=== PATIENT | male | born 1980 | race Caucasian/White ===

== ENCOUNTER 2020-02-23 20:12 | Inpatient (IN) | payer OTHER ==
[2020-02-23 20:50] VITALS: BMI 22.4
[2020-02-23] MEDS ORDERED: MAGNESIUM CITRATE 300 ML BOTTLE PO PRN (21:37)
[2020-02-23] MEDS ORDERED: ONDANSETRON *ODT* 4 MG TABLET SL PRN (21:37)
[2020-02-23] MEDS ORDERED: MENTHOL/PHENOL 1 EACH UD MM PRN (21:37)
[2020-02-23] MEDS ORDERED: MAG HYDROX/AL HYDROX/SIMETH 30 ML UNIT-DOSE CUP PO PRN (21:37)
[2020-02-23] MEDS ORDERED: MAGNESIUM HYDROX 2400MG/30ML ORAL SUSPENSION 30 ML CUP PO PRN (21:37)
[2020-02-23] MEDS ORDERED: ACETAMINOPHEN 325 MG TABLET (FP) PO PRN ×2 (21:37)
[2020-02-23] MEDS ORDERED: BISMUTH SUBSALICYLATE 524 MG/30 ML UD PO PRN (21:37)
[2020-02-23] MEDS: THIAMINE HCL 100 MG TABLET (FP) PO SCH (22:13)
[2020-02-23] MEDS ORDERED: METHADONE HCL 10 MG TABLET (FOR DETOX USE ONLY) PO ONE (22:30)
[2020-02-24] MEDS ORDERED: METHADONE HCL 10 MG TABLET (FOR DETOX USE ONLY) ONE (09:18)
[2020-02-24] MEDS ORDERED: METHADONE HCL 5 MG TABLET (FOR DETOX USE ONLY) ONE (09:18)
[2020-02-24] MEDS ORDERED: METHADONE (DETOX) 20 MG, METHADONE (DETOX) 5 MG PO ONE (10:00)
[2020-02-24] MEDS: NICOTINE 14 MG/24 HOURS TOPICAL PATCH TD SCH (10:17)
[2020-02-24] MEDS: PRENATAL VITAMINS W/ FOLIC ACID TABLET (FP) PO SCH (10:18)
[2020-02-24 12:13] LABS: POTASSIUM 3.8 mmol/L (3.5-5.1)
[2020-02-24 12:16] LABS: ALBUMIN 3.5 g/dl (3.4-5.0)
[2020-02-24 12:17] LABS: CALCIUM 8.9 mg/dL (8.5-10.1)
[2020-02-24 12:18] LABS: BLOOD UREA NITROGEN 20.4 mg/dL (7-18)
[2020-02-24 12:20] LABS: CREATININE 1.1 mg/dL (0.55-1.3); HEMATOCRIT 42.6 % (35.4-49); MCH 29.2 pg (25.7-33.7); MCHC 32.9 g/dl (32.0-35.9); MEAN CELL VOLUME 88.8 fl (80-96); MEAN PLT VOLUME 7.8 fl (7.5-11.1); PLATELET COUNT 291 K/MM3 (134-434); RDW 14.2 % (11.9-15.9); WHITE BLOOD COUNT 6.9 K/mm3 (4.0-10.0)
[2020-02-24 12:21] LABS: BILIRUBIN,TOTAL 0.8 mg/dL (0.2-1); TOT PROT 6.7 g/dl (6.4-8.2)
[2020-02-24] MEDS: NICOTINE POLACRILEX 2 MG GUM BUC PRN ×3 (15:13→22:31)
[2020-02-24] MEDS: IBUPROFEN 400 MG TABLET (FP) PO PRN (15:13)
[2020-02-24] MEDS: METHOCARBAMOL 500 MG TABLET PO PRN (17:41)
[2020-02-24] MEDS: THIAMINE HCL 100 MG TABLET (FP) PO SCH (22:31)
[2020-02-24] MEDS: diazePAM 5 MG TABLET PO PRN (22:32)
[2020-02-25] MEDS ORDERED: METHADONE HCL 10 MG TABLET (FOR DETOX USE ONLY) PO ONE (10:00)
[2020-02-25] MEDS: diazePAM 5 MG TABLET PO PRN ×2 (10:23→18:50)
[2020-02-25] MEDS: PRENATAL VITAMINS W/ FOLIC ACID TABLET (FP) PO SCH (10:23)
[2020-02-25] MEDS: NICOTINE 14 MG/24 HOURS TOPICAL PATCH TD SCH (10:24)
[2020-02-25] MEDS: IBUPROFEN 400 MG TABLET (FP) PO PRN (14:32)
[2020-02-25] MEDS: METHOCARBAMOL 500 MG TABLET PO PRN (14:33)
[2020-02-25] MEDS: cloNIDine HCL 0.1 MG TABLET PO PRN ×2 (17:34→22:08)
[2020-02-25] MEDS: NICOTINE POLACRILEX 2 MG GUM BUC PRN (17:35)
[2020-02-25] MEDS: MELATONIN 5 MG TABLETS PO PRN (22:06)
[2020-02-25] MEDS: THIAMINE HCL 100 MG TABLET (FP) PO SCH (22:09)
[2020-02-26] MEDS: diazePAM 5 MG TABLET PO PRN ×2 (06:55→15:11)
[2020-02-26] MEDS ORDERED: METHADONE HCL 5 MG TABLET (FOR DETOX USE ONLY) ONE (09:33)
[2020-02-26] MEDS ORDERED: METHADONE HCL 10 MG TABLET (FOR DETOX USE ONLY) ONE (09:34)
[2020-02-26] MEDS ORDERED: METHADONE (DETOX) 10 MG, METHADONE (DETOX) 5 MG PO ONE (10:00)
[2020-02-26] MEDS: NICOTINE 14 MG/24 HOURS TOPICAL PATCH TD SCH (10:42)
[2020-02-26] MEDS: METHOCARBAMOL 500 MG TABLET PO PRN (10:43)
[2020-02-26] MEDS: PRENATAL VITAMINS W/ FOLIC ACID TABLET (FP) PO SCH (10:43)
[2020-02-26] MEDS ORDERED: cloNIDine HCL 0.1 MG TABLET PO ONE (10:49)
[2020-02-26] MEDS: NICOTINE POLACRILEX 2 MG GUM BUC PRN ×2 (11:41→22:21)
[2020-02-26] MEDS: IBUPROFEN 400 MG TABLET (FP) PO PRN (18:06)
[2020-02-26] MEDS: THIAMINE HCL 100 MG TABLET (FP) PO SCH (22:20)
[2020-02-26] MEDS: MELATONIN 5 MG TABLETS PO PRN (22:21)
[2020-02-27] MEDS ORDERED: METHADONE HCL 10 MG TABLET (FOR DETOX USE ONLY) PO ONE (10:00)
[2020-02-27] MEDS: NICOTINE 14 MG/24 HOURS TOPICAL PATCH TD SCH (10:26)
[2020-02-27] MEDS: PRENATAL VITAMINS W/ FOLIC ACID TABLET (FP) PO SCH (10:27)
[2020-02-27] MEDS: NICOTINE POLACRILEX 2 MG GUM BUC PRN ×4 (10:29→19:50)
[2020-02-27] MEDS ORDERED: MASKS NR ONE (10:43)
[2020-02-27] MEDS: MELATONIN 5 MG TABLETS PO PRN (21:57)
[2020-02-27] MEDS: THIAMINE HCL 100 MG TABLET (FP) PO SCH (21:57)
[2020-02-28] MEDS ORDERED: METHADONE HCL 5 MG TABLET (FOR DETOX USE ONLY) PO ONE (06:00)
[2020-02-28 09:14] VITALS: BP 112/57; PULSE 74; TEMP 97.7
== END 2020-02-28 09:33 | disposition home or self-care (01) | DRG 773 ==
LOC: YASAS 20:12 → Y6N 21:08
PROVIDERS: ADMIT Allergy & Immunology; ATTEND Allergy & Immunology
PROC: HZ2ZZZZ Detoxification Services for Substance Abuse Treatment (ICD-10-PCS; principal; 2020-02-23)
DX: F11.23 Opioid dependence with withdrawal (principal); F10.230 Alcohol dependence with withdrawal, uncomplicated; F12.10 Cannabis abuse, uncomplicated; F17.210 Nicotine dependence, cigarettes, uncomplicated; Z86.59 Personal history of other mental and behavioral disorders; Z59.0 Homelessness
CPT/HCPCS: 36415; 80053; 85027; 86780; 93005; 93010; C9803; J0735; Q0162; U0003